=== PATIENT | female | born 1960 | race Caucasian/White ===

== ENCOUNTER → 2024-09-20 09:40 | Outpatient (REF) | payer OTHER, SELFPAY | LOC: EMG 09:40 | PROVIDERS: ATTENDING PHYSICIAN Family Medicine | DX: M54.16 Radiculopathy, lumbar region (principal); R20.0 Anesthesia of skin | CPT/HCPCS: 95886; 95908 ==

== ENCOUNTER → 2024-09-26 15:43 | Outpatient (REF) | payer OTHER, SELFPAY | LOC: RAD 15:43 | PROVIDERS: ATTENDING PHYSICIAN Family Medicine | DX: M54.16 Radiculopathy, lumbar region (principal); M51.362 Other intervertebral disc degeneration, lumbar region with discogenic back pain and lower extremity pain; M41.9 Scoliosis, unspecified; G89.4 Chronic pain syndrome; Z96.89 Presence of other specified functional implants; M96.1 Postlaminectomy syndrome, not elsewhere classified | CPT/HCPCS: 72129; 72132; Q9967 ==

== ENCOUNTER → 2024-12-20 14:34 | Outpatient (REF) | payer OTHER, SELFPAY | LOC: RAD 14:34 | PROVIDERS: ATTENDING PHYSICIAN Neurological Surgery; FAMILY PHYSICIAN Family Medicine | DX: M41.9 Scoliosis, unspecified (principal) | CPT/HCPCS: 72082 ==

== ENCOUNTER → 2025-01-03 11:22 | Outpatient (REF) | payer OTHER, SELFPAY | LOC: PAVMRI 11:22 | PROVIDERS: ATTENDING PHYSICIAN Neurological Surgery; FAMILY PHYSICIAN Family Medicine | DX: M41.9 Scoliosis, unspecified (principal); Z98.1 Arthrodesis status | CPT/HCPCS: 72146; 76014; 76015 ==

== ENCOUNTER → 2025-01-05 11:23 | Outpatient (REF) | payer OTHER, SELFPAY | LOC: PAVMRI 11:23 | PROVIDERS: ATTENDING PHYSICIAN Neurological Surgery; FAMILY PHYSICIAN Family Medicine | DX: M41.9 Scoliosis, unspecified (principal); Z98.1 Arthrodesis status | CPT/HCPCS: 72148; 76014; 76015 ==

== ENCOUNTER → 2025-03-09 16:00 | Outpatient (REF) | payer OTHER, SELFPAY | LOC: DHSLP 16:00 | PROVIDERS: ATTENDING PHYSICIAN Family Medicine | DX: G47.30 Sleep apnea, unspecified (principal); R06.03 Acute respiratory distress | CPT/HCPCS: 95800 ==

== ENCOUNTER → 2025-10-05 12:57 | Outpatient (REF) | payer OTHER, SELFPAY | LOC: WDC 12:57 | PROVIDERS: ATTENDING PHYSICIAN Family Medicine | DX: Z12.31 Encounter for screening mammogram for malignant neoplasm of breast (principal) | CPT/HCPCS: 77063; 77067 ==